=== PATIENT | male | born 1995 | race Caucasian/White ===

== ENCOUNTER 2018-10-02 09:54 | Emergency (ER) | payer SELFPAY ==
[~2018-10-02] VITALS: Ht 188 cm; Wt 129.7 kg
[2018-10-02 10:01] VITALS: Ht 188 cm; Wt 129.7 kg
[2018-10-02 10:50] LABS: CALCIUM 10.1 mg/dL (8.5-10.1); CARBON DIOXIDE 23.8 mmol/L (21-32); CHLORIDE SERUM 97 mmol/L (98-107); CREATININE SERUM 1.3 mg/dL (0.7-1.3); GFR1 > 60 mL/min; GLUCOSE SERUM 117 mg/dL (74-106); POTASSIUM SERUM 3.4 mmol/L (3.5-5.1); SODIUM SERUM 137 mmol/L (136-145)
[2018-10-02 10:54] LABS: BASOPHIL % 0.4 % (0-2); PLATELET COUNT 266 x10^3mcL (130-400); RED CELL DISTRIBUTION WIDTH 12.7 % (11.5-14.5)
[2018-10-02 10:55] LABS: ALBUMIN 4.8 g/dL (3.4-5.0); ALKALINE PHOSPHATASE 74 U/L (46-116); ALT/SGPT 50 U/L (16-63); AST/SGOT 36 U/L (15-37); BILIRUBIN TOTAL 1.5 mg/dL (0.20-1.00); TOTAL PROTEIN, SERUM 9.2 g/dL (6.4-8.2)
[2018-10-02 12:26] VITALS: BP 157/72
== END 2018-10-02 12:30 | disposition home or self-care (01) ==
LOC: ED 09:54
PROVIDERS: Emergency Medicine
DX: F12.188 Cannabis abuse with other cannabis-induced disorder (principal); R11.10 Vomiting, unspecified; Z88.0 Allergy status to penicillin
CPT/HCPCS: J1630; J7030

== ENCOUNTER 2019-02-12 12:24 | Emergency (ER) | payer SELFPAY ==
[~2019-02-12] VITALS: Ht 182.9 cm; Wt 113.4 kg
[2019-02-12 12:36] VITALS: Ht 182.9 cm; Wt 113.4 kg
[2019-02-12 17:44] VITALS: BP 137/88
== END 2019-02-12 17:44 | disposition home or self-care (01) ==
LOC: ED 12:24
DX: K31.89 Other diseases of stomach and duodenum (principal); R11.11 Vomiting without nausea; F12.10 Cannabis abuse, uncomplicated; Z88.0 Allergy status to penicillin
CPT/HCPCS: J1630; J2405; J7030